=== PATIENT | male | born 1955 | race Two or more races ===

== ENCOUNTER 2024-03-24 05:54 | Day surgery (SDC) | payer OTHER, SELFPAY ==
[2024-03-05 09:39] VITALS: BMI 30.1
[2024-03-05 10:18] LABS: Hematocrit 42.7 % (39.0-52.0); Hemoglobin 14.4 g/dL (13.0-18.0); Mean Corp Hgb Conc. 33.7 g/dL (33.0-37.0); Mean Corpuscular Hgb 28.8 pg (27.0-31.0); Mean Corpuscular Volume 85.4 fL (80.0-94.0); Mean Platelet Volume 8.9 fL (7.4-10.4); Platelet Count 376 10^3/uL (130-400); Red Cell Dist. Width 13.4 % (11.5-14.5)
[2024-03-05 11:13] LABS: Blood Urea Nitrogen 16 mg/dl (9-20); Calcium 9.6 mg/dl (8.4-10.2); Carbon Dioxide 30 mmol/L (22-30); Chloride 98 mmol/L (98-107); Estimated Creatinine Clearance 96 ml/min; Glucose 109 mg/dl (70-99); Potassium 5.1 mmol/L (3.5-5.1); Sodium 135 mmol/L (135-145); eGFR > 60.00
[2024-03-24] VITALS (17 sets, daily range): BP systolic 124–174; BP diastolic 72–112; BMI 30.1
--- NOTE | 2024-03-24 07:08 | HP.FOC2 ---
Focused History & Physical
Chief Complaint
HPI:
Chief Complaint: Ventral hernia
HPI / Indication for Planned Procedure: Patient is a 68-year-old male presents for scheduled operative correction symptomatic, enlarging epigastric hernia. Medical history predominantly notable for COPD/emphysema.
Relevant Past Medical History: Other (COPD/emphysema, frequent ear infections, C1-3 fracture, L4-5 fracture history)
Relevant Social History: Tobacco Use (Former, quit 2021)
Relevant Family History: Negative
Relevant Past Surgical History: Positive for (Cervical fusion C1-C2)
Review of Systems
Review of Pertinent Systems: All Systems Negative
Medication
See Medication form for detailed medications: Yes
Medication List (including Herbals & OTC):
amlodipine 10 mg tablet 10 mg PO HS Blood pressure 11/08/22
ipratropium 0.5 mg-albuterol 3 mg (2.5 mg base)/3 mL nebulization soln 3 ml inhalation PRN PRN COPD 11/08/22
roflumilast 500 mcg tablet 500 mcg PO DAILY COPD 11/08/22
valsartan 320 mg tablet 320 mg PO DAILY Blood pressure 11/08/22
fluticasone fur. 200 mcg-umeclid 62.5 mcg-vilant 25 mcg inhalat.powder (Trelegy Ellipta) 1 inh inhalation DAILY 03/19/24
hydrocodone 5 mg-acetaminophen 300 mg tablet 1 tab PO Q6H PRN discomfort 03/19/24
Medications Reviewed: Yes
Allergies and Reactions
Patient has Allergies: No
Noted Allergies and Reactions:
Allergy/AdvReac Type Severity Reaction Status Date / Time
No Known Allergies Allergy Verified 03/24/24 07:08
Pertinent Physical Exam
All Other Systems: Negative
Head/Neck: Normal
Lungs: Normal
Heart: Normal
Abdomen: Other (Large epigastric incisional hernia, nearly fully reducible)
Extremities: Normal
Neurological: Normal
Diagnosis / Assessment
Assessment: 68-year-old male presenting for scheduled operative correction large, symptomatic epigastric ventral hernia
Plan / Procedure
Robotic assisted laparoscopic repair epigastric hernia with mesh
Anesthesia/Sedation to be done by Anesthesia Provider: Yes
--- NOTE | 2024-03-24 07:11 | W.SUR.PREOP ---
Pre-Operative Surgical Note
-
I have examined this patient prior to the performance of the scheduled procedure.
The patient's condition is unchanged from the time of the current History and
Physical and the patient is able to undergo the scheduled procedure.
[2024-03-24] MEDS: TYLENOL 1000 MG PO (07:23)
[2024-03-24] MEDS: NORMOSOL-R 1000 IV (07:24)
--- NOTE | 2024-03-24 09:57 | W.IMMPOSTOP ---
Addendum entered and electronically signed by Magen Gilbert MD 03/24/24 13:55:
The assistance of Michelle Castillo PA-c was required due to the complexity of the procedure. During the procedure Michelle Castillo PA-c assisted with trocar placement, robotic instrument and suture material exchanges, and closure of the incision sites. I
was present throughout the entirety of the operative procedure.
#[id number]
Original Note:
Surgical Immed Post Op Note
-
Primary Surgeon: Vladimir
Assisting Surgeon: Michelle Castillo PA-c
Pre-op Diagnosis: Epigastric Ventral Hernia
Post-op Diagnosis: Epigastric Ventral Hernia 6cm
Procedure Performed: RAL RONAL repair epigastric ventral hernia with mesh; ventralight ST 15cm x20cm
Anesthesia Type: GETA + 0.25% Marcaine with epi
Specimen / Cultures: none
Estimated Blood Loss: 6mL
Complications: none immediate
Operative Findings: Large epigastric ventral hernia which measured 6 cm in horizontal length and 5 cm in vertical length located just a few centimeters inferior from the xiphoid process. Wide preperitoneal flap created with extensive subcostal and
subxiphoid/diaphragmatic exposure for mesh placement. Hernia sac completely reduced. Fascial defect closed along horizontal oriented length with #1 PDS STRATAFIX running continuous double layer. 15 cm x [address] hernia mesh positioned
horizontally. Central fixation with running continuous 2-0 PDS STRATAFIX spiral along the length of linea alba. 180 degree fixation along the cranial portion of mesh from left to right costal margin with a running continuous 2-0 PDS strata fix
spiral. Closure of the peritoneal flap with 2-0 Monocryl STRATAFIX spiral.
[2024-03-24] MEDS: DILAUDID 0.5 MG IV ×3 (10:22→11:21)
[2024-03-24] MEDS: NSS 1000 IV ×2 (11:30→21:39)
--- NOTE | 2024-03-24 12:21 | PTCARENOTE ---
Pt arrived to [facility] from PACU s/p hernia repair w/ mesh. Pt has 5 lap sites, all KENNEDY and C/D/I, abdominal binder on. IVF infusing, satting 95% on 2L NC. Pt states mild pain at this time. Oriented to call escalante and room, bed locked and in lowest
position, call escalante within reach.
[2024-03-24] MEDS: ROXICODONE 5 MG PO ×2 (12:37→16:58)
[2024-03-24] MEDS: DILAUDID 1 MG IV ×3 (14:37→20:13)
[2024-03-24] MEDS: SYMBICORT 160/4.5 MCG INHALER INH (16:48)
[2024-03-24] MEDS: LOVENOX 40 MG SC (17:00)
[2024-03-24] MEDS: NORVASC 10 MG PO (21:40)
[2024-03-25] MEDS: DILAUDID 1 MG IV (01:03)
[2024-03-25] MEDS: DUONEB 3 ML INH (01:12)
[2024-03-25 03:36] VITALS: BP 128/71
[2024-03-25] MEDS: ROXICODONE 5 MG PO ×2 (04:23→08:35)
[2024-03-25 07:01] VITALS: BP 125/96
--- NOTE | 2024-03-25 07:27 | W.PN.GS2 ---
Today's Communication / Plan
-
DC home
Assessment / Plan
-
Assessment: 68-year-old male POD #1 status post RAL epigastric ventral hernia with mesh
AFVSS
Expected postoperative incisional/herniorrhaphy pain, adequately controlled
COPD history/nocturnal oxygen requirement at home -> essentially unchanged postop, doing well from pulmonary standpoint on home regimen
Plan: DC home today
Encouraged continued use of incentive spirometry
Encourage frequent ambulation at home
Prescription provided for Dilaudid p.o. for postoperative pain control as patient has utilized in the past and feels as though this optimally controls his pain
Postoperative follow-up in 2 to 3 weeks
DC instructions reviewed with patient
Subjective Data
-
Date of Service: March 25, 2024
pt seen and examined
c/o post op pain at herniorrhaphy site
Otherwise doing well, breathing comfortably, no cough, shortness of breath
No nausea
Passing flatus
Tolerating dietary advancement
Voiding volitionally
Objective Data
-
Intake and Output
03/24/24 03/25/24 03/26/24
06:59 06:59 06:59
Intake Total 3060 / 3060
Output Total 3100 / 3100
Balance -40 / -40
Intake:
Oral fluids 1560 / 1560
IV fluids (Total) 1500 / 1500
Normsol 300 / 300
Output:
Urine, Voided 3100 / 3100
Vital Signs
Temp Pulse Resp BP Pulse Ox
98.3 F 76 20 128/71 93
03/25/24 03:36 03/25/24 03:36 03/25/24 03:36 03/25/24 03:36 03/25/24 03:36
Lab Results
03/05/24 09:33
03/05/24 09:33
Calcium 9.6 mg/dl (8.4-10.2) 03/05/24 09:33
Physical Exam
-
NAD AAOx3
ABD: Soft nondistended, tenderness palpation upper abdomen and at surgical sites.
Binder removed to examine incision sites. Incisions closed with glue dressing. No erythema, no drainage.
[2024-03-25] MEDS: SYMBICORT 160/4.5 MCG INHALER 2 PUFF INH (07:35)
[2024-03-25] MEDS: SPIRIVA RESPIMAT 2.5 MCG 2 PUFF INH (07:35)
[2024-03-25] MEDS: ProAIR HFA INHALER 2 PUFF INH (07:35)
[2024-03-25] MEDS: TORADOL 10 MG IV (07:58)
[2024-03-25] MEDS: DIOVAN 320 MG PO (07:59)
[2024-03-25] MEDS: DALIRESP 500 MCG PO (08:00)
--- NOTE | 2024-03-25 08:35 | W.DS.TRANS ---
DC Summary - [employer]
-
Discharge Instructions:
Sleep Apnea Risk Intermediate
Discharge Diagnosis/Procedures Epigastric ventral hernia. Robotic assisted
laparoscopic repair of ventral hernia with mesh
Diet No restrictions,As tolerated
Additional Diets smaller meals initially after surgery and
abdominal bloating/distention and tightness are
common the first few days
Activity No strenuous activity
Additional Activity no lifting over 20lbs for 6 weeks post op
Driving Restrictions No driving 2 to 3 days or if using narcotics
Bathing Restrictions OK to Shower
Wound Care Glue at surgical sites typically peels off in 2
to 3 weeks.
wear abdominal binder for support particularly
with activities during the day. okay to leave
off when resting.
Instructions:
Stand-Alone Forms:
Changes to Home Medications: No
Discharge Medications:
DC Medications w/original date entered in [facility]
amlodipine 10 mg tablet 10 mg PO HS Blood pressure 11/08/22
ipratropium 0.5 mg-albuterol 3 mg (2.5 mg base)/3 mL nebulization soln 3 ml inhalation PRN PRN COPD 11/08/22
roflumilast 500 mcg tablet 500 mcg PO DAILY COPD 11/08/22
valsartan 320 mg tablet 320 mg PO DAILY Blood pressure 11/08/22
fluticasone fur. 200 mcg-umeclid 62.5 mcg-vilant 25 mcg inhalat.powder (Trelegy Ellipta) 1 inh inhalation DAILY 03/19/24
acetaminophen 500 mg tablet (Tylenol Extra Strength) 1,000 mg (2 x 500 mg) PO Q6HPRN PRN mild pain #1 tab 03/25/24
hydrocodone 5 mg-acetaminophen 300 mg tablet 1 tab PO Q6H PRN discomfort #0 tabs 03/25/24
hydromorphone 2 mg tablet (Dilaudid) 2 mg PO Q4H PRN severe pain #15 tabs 03/25/24
ibuprofen 200 mg tablet 400 mg (2 x 200 mg) PO Q6HPRN PRN moderate pain #1 tab 03/25/24
polyethylene glycol 3350 17 gram/dose oral powder (Miralax) 4 g PO DAILY PRN Constipation #119 grams 03/25/24
Home Medication Changes
Pending Results: No
[2024-03-25] MEDS: NSS IV (08:48)
--- NOTE | 2024-03-25 09:58 | CM ---
CM following re: discharge planning.
Reviewed pt's chart, met with pt.
Pt is a 68 year old male, admitted with SDC status and primary dx of POD #1 status post RAL epigastric ventral hernia with mesh.
Pt reports he lives with spouse in a [address], has 3 supportive children. Pt described himself as independent in al areas [employer], drives. No DME, VN or SNF history.
Discharge order noted. pt is aware and he stated his spouse is coming to take him home. Pt stated he has an appointment with surgeon. No after care VN services indicated.
PCP: Crispin Sheriff
pharmacy: [facility]
D/C plan: home no needs. Spouse to transport.
== END 2024-03-25 11:00 | disposition home or self-care (01) ==
LOC: SDS 05:54
PROVIDERS: ATTENDING PHYSICIAN Surgery; FAMILY PHYSICIAN Family Medicine
DX: K43.9 Ventral hernia without obstruction or gangrene (principal)
CPT/HCPCS: 49593; 36415; 80048; 85027; 93005; 94640; C1781